=== PATIENT | male | born 1980 | race African-American/Black ===

== ENCOUNTER 2020-04-10 11:28 | Emergency (ER) | payer OTHER ==
[~2020-04-10] VITALS: Ht 182.9 cm; Wt 104.3 kg
[2020-04-10 11:50] VITALS: BP 150/100
[2020-04-10] MEDS ORDERED: KEFLEX500 M1 PO (12:31)
== END 2020-04-10 12:57 | disposition home or self-care (01) ==
LOC: ER 11:28
DX: J02.0 Streptococcal pharyngitis (principal); R47.02 Dysphasia